=== PATIENT | male | born 2000 | race Caucasian/White ===

== ENCOUNTER 2023-07-02 12:24 | Emergency (ER) | payer OTHER ==
[~2023-07-02] VITALS: Ht 177.8 cm; Wt 70.9 kg
[2023-07-02 12:28] VITALS: BP 116/75; TEMP 98.2
[2023-07-02 13:27] VITALS: PULSE 95
== END 2023-07-02 13:30 | disposition home or self-care (01) ==
LOC: COL.ER 12:24
DX: S80.01XA Contusion of right knee, initial encounter (principal); W01.0XXA Fall on same level from slipping, tripping and stumbling without subsequent striking against object, initial encounter; Y93.01 Activity, walking, marching and hiking